=== PATIENT | male | born 1990 | race African-American/Black ===

== ENCOUNTER 2025-05-29 07:17 | Emergency (ER) | payer OTHER, SELFPAY ==
[2025-05-29] MEDS ORDERED: Lidocaine Viscous Sol 2% 15 ml UD Cup ONE (08:00)
[2025-05-29] MEDS ORDERED: Mag-Al Plus 1200/1200/120 MG (30 mL) UDCUP ONE (08:00)
[2025-05-29] MEDS ORDERED: Pantoprazole 40 MG DR.TAB ONE (08:00)
[2025-05-29] MEDS ORDERED: Sucralfate 1 GM TAB ONE (08:00)
== END 2025-05-29 08:42 | disposition home or self-care (01) ==
LOC: NAV ERS 07:17
DX: K29.70 Gastritis, unspecified, without bleeding (principal); F17.290 Nicotine dependence, other tobacco product, uncomplicated
CPT/HCPCS: 99283; Q0162